=== PATIENT | male | born 1970 | race Caucasian/White ===

== ENCOUNTER 2020-11-24 19:19 | Emergency (ER) | payer OTHER ==
[2020-11-24 19:37] VITALS: BP 128/67; PULSE 65; TEMP 98.9; BMI 34.9
[2020-11-24] MEDS ORDERED: IBUPROFEN 400 MG TABLET (FP) PO ONE ×2 (19:46→19:52)
== END 2020-11-24 22:00 | disposition home or self-care (01) ==
LOC: FER 19:19
DX: M76.72 Peroneal tendinitis, left leg (principal); M79.605 Pain in left leg
CPT/HCPCS: 93971-TC; 99284-25